=== PATIENT | male | born 1990 | race Caucasian/White ===

== ENCOUNTER 2020-11-22 10:57 | Emergency (ER) | payer OTHER ==
[~2020-11-22] VITALS: Ht 188 cm; Wt 90.9 kg
[2020-11-22 11:15] VITALS: BP 136/63
--- NOTE | 2020-11-22 11:55 | PHYS DOC ---
Past Medical History Past Medical History: Sciatica Additional Past Medical Histor: EOE, torn R rotater cuff Past Surgical History: Other Additional Past Surgical Histo: 2 L ACL repairs Smoking Status: Never Smoker Alcohol Use: Rarely General Adult EDM: Chief Complaint: LOWER BACK PAIN OR INJURY HPI: HPI: Patient is a 30 year old male with a history of chronic low back pain presenting today complaining of 7 out of 10 chronic low back pain radiating to the right lower extremity. Patient denies any trauma. Denies any loss of bowel/bladder function. States the pain is worse on certain movements and nothing relieves his pain. [place] the [place] He states the PCP did an MRI 2 weeks ago which showed he has bulging disc on L3-L5. He states he was instructed to follow-up with the neurosurgery. He states he called the number and found a physical therapist office. He states he followed up with urgent care at [facility] and they started him on Flexeril and steroids. He states he finished the steroids and he still has pain. He states he does not want any narcotics. He states he wants to facilitate his entry into the neurosurgeons office or get a nerve test which his PCP informed him he can not do because he does not have the equipment or staff. Review of Systems: Review of Systems: Constitutional: Denies fever or chills. [] GI: Denies abdominal pain, nausea, vomiting, bloody stools or diarrhea. [] : Denies dysuria. [] Musculoskeletal: Reports low back pain Integument: Denies rash. [] Neurologic: Denies headache, focal weakness or sensory changes. [] Psychiatric: Denies depression or anxiety. [] Heart Score: C/O Chest Pain: N/A Risk Factors: Risk Factors: DM, Current or recent (<one month) smoker, HTN, HLP, family history of CAD, obesity. Risk Scores: Score 0 - 3: 2.5% MACE over next 6 weeks - Discharge Home Score 4 - 6: 20.3% MACE over next 6 weeks - Admit for Clinical Observation Score 7 - 10: 72.7% MACE over next 6 weeks - Early Invasive Strategies Allergies: Allergies: Allergies Coded Allergies Type Severity Reaction Last Updated Verified No Known Drug Allergies 11/22/20 No Physical Exam: PE: Constitutional: Well developed, well nourished, no acute distress, non-toxic appearance. [] Abdomen: Bowel sounds normal, soft, no tenderness, no masses, no pulsatile masses. [] Skin: Warm, dry, no erythema, no rash. [] Back: No tenderness, no CVA tenderness. [] Extremities: No tenderness, no cyanosis, no clubbing, ROM intact, no edema. [] Neurologic: Alert and oriented X 3, normal motor function, normal sensory function, no focal deficits noted. [] Psychologic: flat affect, appears sad Current Patient Data: Vital Signs: Vital Signs Date Time Temp Pulse Resp B/P (MAP) Pulse Ox O2 Delivery O2 Flow Rate FiO2 11/22/20 11:15 98.2 75 18 136/63 (87) 96 Room Air 98.2 EKG: EKG: [] Radiology/Procedures: Radiology/Procedures: [] Course & Med Decision Making: Course & Med Decision Making Pertinent Labs and Imaging studies reviewed. (See chart for details) This a 30-year-old male patient presented to the ED today with chronic low back pain. See HPI. Patient is in the . Already had an MRI done 2 weeks ago which showed bulging disks on L3-L5. He was referred to a neurosurgeon. He is already being seen by urgent care couple days ago. He has no cauda equina syndrome symptoms. At this point I recommended he contacts the neurosurgeon's office and set up a follow-up appointment. I also gave him a pain clinic doctor contact information. RN and I spent a long time with this patient trying to convince him the importance of following up with the neurosurgeon and pain clinic. Christiana Disclaimer: Christiana Disclaimer: This electronic medical record was generated, in whole or in part, using a voice recognition dictation system. Departure Departure Impression: Primary Impression: Low back pain Qualified Codes: M54.41 - Lumbago with sciatica, right side; G89.29 - Other chronic pain Disposition: 01 HOME / SELF CARE / HOMELESS Condition: STABLE Referrals: MARIELOS WAGNER MD (PCP) RUKHSANA TRIANA MD Call his office tomorrow and set up a follow-up appointment ANDREY FARIAS MD Call his office tomorrow and set up a follow-up appointment Patient Instructions: Back Pain, Adult Additional Instructions: You were evaluated in the emergency room for chronic low back pain with sciatica. We highly recommend you contact the neurosurgeon and the pain clinic doctor and set up a follow-up appointment. Continue doing the home remedies like using a heating pad at home. Continue doing your physical exercises as tolerated. Come back to the ED at any point symptoms worsen GOLD HANSON APRN Nov 22, 2020 11:55
== END 2020-11-22 12:09 | disposition home or self-care (01) ==
LOC: ER 10:57
DX: M54.41 Lumbago with sciatica, right side (principal); G89.29 Other chronic pain
CPT/HCPCS: 99281